=== PATIENT | female | born 1960 | race Two or more races ===

== ENCOUNTER 2021-04-27 08:03 | Day surgery (SDC) | payer OTHER ==
[~2021-04-27 08:03] MED LIST: DAILY VALUE1 EACH PO; FOLIC ACID PO; HUMIRA PO; PLAQUENIL PO; PRENISONE PO; SYNTHROID75 MCG PO
[2021-04-27] MEDS ORDERED: AMOXICILLIN500 MG PO (15:09)
[2021-04-27] MEDS ORDERED: ZOFRAN8 MG PO (15:09)
[2021-04-27] MEDS ORDERED: CILOXAN5 ML OTIC (15:09)
== END 2021-04-27 20:21 | disposition home or self-care (01) ==
LOC: CIR.AMB 08:03
PROVIDERS: ATTEND Otolaryngology Otology & Neurotology
DX: H70.12 Chronic mastoiditis, left ear (principal); H74.22 Discontinuity and dislocation of left ear ossicles; H72.02 Central perforation of tympanic membrane, left ear